=== PATIENT | male | born 1940 | race Two or more races ===

== ENCOUNTER 2016-11-26 20:26 | Emergency (ER) | payer MEDICARE, MEDICAID ==
[~2016-11-26] VITALS: Ht 172.7 cm; Wt 63.5 kg
--- NOTE | 2016-11-26 20:35 | NUR ---
pt [place] streets to er bed 11. per report, pt was sleeping outside a restaurant beside a bottle of vodka. pt is verbally responsive. [id number]. placed on monitor. awaiting md pulliam.
--- NOTE | 2016-11-26 20:38 | NUR ---
dr argueta at bedside for eval.
--- NOTE | 2016-11-27 05:26 | NUR ---
pt ok to be discharged home. Patient discharged to home in stable condition. Written and verbal after care instructions given. Patient verbalizes understanding of instruction.Patient is awake and alert to self, day, and place. pt ambulatory with a steady gait
[2016-11-27 05:27] VITALS: BP 127/80
== END 2016-11-27 05:27 | disposition home or self-care (01) ==
LOC: ER 20:28
DX: F10.10 Alcohol abuse, uncomplicated (principal)
CPT/HCPCS: A4606; Z7610